=== PATIENT | female | born 1960 | race Caucasian/White ===

== ENCOUNTER 2018-05-28 11:13 | Emergency (ER) | payer OTHER ==
[2018-05-28 11:16] VITALS: RESP 18; TEMP 98.4
[2018-05-28 11:17] VITALS: BMI 29.9
--- NOTE | 2018-05-28 11:41 | ED PDOC ---
Upper Extremity Pain/Injury Time Seen by Provider: 05/28/18 11:25 Chief Complaint (Provider): Wrist injury History Per: Patient History/Exam Limitations: no limitations Hands/Wrist (Pic): 1 - Pain Worse W/Movement Additional Complaint(s): Pt reports she tripped and fell [employer], now c/o L wrist pain. No head injury, no paresthesias, no weakness. Pt to take flight back to [place] in 5 hours. Past Medical History Reviewed: Nursing Documentation, Vital Signs Vital Signs: Last Vital Signs Temp 98.4 F 05/28/18 11:15 Pulse 105 H 05/28/18 11:15 Resp 18 05/28/18 11:15 BP 168/109 H 05/28/18 11:15 Pulse Ox 95 05/28/18 11:15 - Medical History PMH: No Chronic Diseases - Family History Family History: States: Unknown Family Hx - Living Arrangements Living Arrangements: With Family - Social History Current smoker - smoking cessation education provided: No Alcohol: None - Home Medications Home Medications: Ambulatory Orders Medication Instructions Recorded Ibuprofen [Motrin] 600 mg PO Q6H PRN #20 tab 05/28/18 - Allergies Allergies/Adverse Reactions: Allergies Allergy/AdvReac Type Severity Reaction Status Date / Time No Known Allergies Allergy Verified 05/28/18 11:38 Review of Systems Musculoskeletal: Positive for: Hand Pain, Other (Wrist pain). Negative for: Neck Pain Skin: Negative for: Rash, Lesions Neurological: Negative for: Headache, Dizziness Physical Exam - Reviewed Vital Signs Reviewed: Yes - Physical Exam Appears: Positive for: No Acute Distress Head Exam: Positive for: ATRAUMATIC, NORMAL INSPECTION Skin: Positive for: Normal Color, Warm, Dry Extremity: Positive for: Tenderness (L posterior lateral wrist, decreased ROM secondary to pain, sensation intact, +2 radial pulse, <2 sec cap refill). Negative for: Normal ROM - ECG O2 Sat by Pulse Oximetry: 95 Medical Decision Making Medical Decision Makin yo female with L wrist injury. - XR L hand - XR L wrist - Motrin - ring removal [address] De La Fuente who states this is not a surgical case Patient to be splinted, and discharged home 1315 Post splint application exam reveals normal distal sensations, capillary refill is < 2 seconds Patient informed to follow up with PMD in [facility], given copies of XR images. Stable for discharge. Disposition - Clinical Impression Clinical Impression: Distal radius fracture - Disposition Disposition: Routine/Home Disposition Time: 13:15 Condition: STABLE Additional Instructions: FOLLOW-UP WITH ORTHOPED[facility] IN [facility]. Prescriptions: Ibuprofen [Motrin] 600 mg PO Q6H PRN #20 tab PRN Reason: Pain, Moderate (4-7) Instructions: Radius Fracture Forms: [facility] ([facility])
[2018-05-28 13:33] VITALS: BP 151/88; PULSE 78
--- NOTE | 2018-05-28 14:48 | RAD ---
Date of service: 05/28/2018 PROCEDURE: Left Wrist Radiographs. HISTORY: Fall COMPARISON: None. TECHNIQUE: 4 views obtained. FINDINGS: BONES: Complex, comminuted intra-articular fracture of the distal radius. Unremarkable adjacent carpal bones. JOINTS: Normal. No dislocation. SOFT TISSUES: Soft tissue swelling attests to the acuity of the fracture. OTHER FINDINGS: None. IMPRESSION: Acute, comminuted fracture distal left radius with an intra-articular component.
--- NOTE | 2018-05-28 14:57 | RAD ---
PROCEDURE: Left Hand Radiographs. HISTORY: Fall COMPARISON: None. TECHNIQUE: 3 views obtained. FINDINGS: BONES: Known distal radial fracture. JOINTS: Normal. No osteoarthritic changes. SOFT TISSUES: Septated soft tissue swelling about the wrist/fracture. OTHER FINDINGS: None. IMPRESSION: Known distal radial fracture. No additional fractures identified.
[2018-06-01 16:21] VITALS: O2SAT 95
== END 2018-05-28 13:33 | disposition home or self-care (01) ==
LOC: H.ER 11:13
DX: S52.592A Other fractures of lower end of left radius, initial encounter for closed fracture (principal); W01.0XXA Fall on same level from slipping, tripping and stumbling without subsequent striking against object, initial encounter